=== PATIENT | male | born 1960 | race Caucasian/White ===

== ENCOUNTER 2019-01-27 09:44 | Emergency (ER) | payer OTHER, MEDICARE ==
[~2019-01-27 09:44] MED LIST: IBUP-1572 PO
--- NOTE | 2019-01-27 11:29 | NUR ---
Attempted to call patient, patient gave phone number to financial systems analyst. Stated they would speak with him and have him give us a call.
== END 2019-01-27 11:36 | disposition left against medical advice (07) ==
LOC: ER 09:45
DX: M25.539 Pain in unspecified wrist (principal); Z53.21 Procedure and treatment not carried out due to patient leaving prior to being seen by health care provider